=== PATIENT | female | born 1960 | race Caucasian/White ===

== ENCOUNTER 2016-08-21 17:20 | Emergency (ER) | payer MEDICAID ==
[~2016-08-21] VITALS: Ht 165.1 cm; Wt 73.0 kg
[~2016-08-21 17:20] MED LIST: ASPI-621 PO; ATOR20TA9 PO; CARV3.122 PO; CHLO25TA PO; LISI40TA PO; LISI5TAB7 PO; OXYC-229 PO; ZOLP-413 PO
[2016-08-21 17:21] VITALS: BP 177/96
[2016-08-21] MEDS ORDERED: KETOROLAC 30 MG/1 ML ONE (18:54)
[2016-08-21] MEDS ORDERED: KETOROLAC 30 MG/1 ML IM ONE (19:00)
== END 2016-08-21 19:53 | disposition home or self-care (01) ==
LOC: ED 19:47
DX: S13.4XXA Sprain of ligaments of cervical spine, initial encounter (principal); S80.212A Abrasion, left knee, initial encounter; S50.311A Abrasion of right elbow, initial encounter; M50.320 Other cervical disc degeneration, mid-cervical region, unspecified level; F17.200 Nicotine dependence, unspecified, uncomplicated; E78.00 Pure hypercholesterolemia, unspecified; I10 Essential (primary) hypertension; G89.29 Other chronic pain; W01.0XXA Fall on same level from slipping, tripping and stumbling without subsequent striking against object, initial encounter; Y93.89 Activity, other specified; Y92.89 Other specified places as the place of occurrence of the external cause; Y99.8 Other external cause status
CPT/HCPCS: 72050; 73080; 73564; 96372; 99284; J1885

== ENCOUNTER → 2017-04-16 | Outpatient (CLI) | payer MEDICAID ==
[~2017-04-16] MED LIST changes: -OXYC-229 PO; +OXYC-307 PO
== END | disposition home or self-care (01) ==
LOC: CARD 08:47
PROVIDERS: ATTEND Family Medicine Sports Medicine
DX: M54.2 Cervicalgia (principal); M79.662 Pain in left lower leg
CPT/HCPCS: 95911